=== PATIENT | female | born 1965 | race Caucasian/White ===

== ENCOUNTER 2017-05-21 11:34 | Emergency (ER) | payer OTHER ==
[~2017-05-21] VITALS: Ht 157.5 cm; Wt 81.8 kg
[~2017-05-21 11:34] MED LIST: ALBU8.5H2 IH; AMIT100T2 PO; AMOX-366 PO; DOCU100T2 PO; FEXO1TAB7 PO; FLUT16SP2 NS; HYDR-3797 PO; HYDR-3825 PO; KLO1T PO; LANS30CA14 PO; MORP30TA PO; PROM25TA14 PO; SERT25TA6 PO; ZOLP5TAB6 PO; [UNRECOGNIZED DRUG - CODE] PO
[2017-05-21 11:38] VITALS: BP 163/78; PULSE 78; RESP 17; O2SAT 99
[2017-05-21] MEDS ORDERED: 0.9% Sodium Chloride 1,000 ML IV ONE (13:02)
[2017-05-21 13:12] LABS: BASOPHILS % (AUTO) 0.3 % (0-3); EOSINOPHILS % (AUTO) 1.4 % (0-5); MONOCYTES % (AUTO) 5.7 % (4-12); Mean Corpuscular Hemoglobin 27.1 pg (27.0-35.0); Mean Corpuscular Volume 81.3 fL (81-100); NEUTROPHILS % (AUTO) 50.1 % (40-74); Platelet Count 181 bil/L (150-400)
[2017-05-21] MEDS: HYDROmorphone 0.5 mg/0.5 mL iSecure Syringe IVPUSH PRN ×4 (13:15→14:27)
[2017-05-21 13:34] LABS: APPEARANCE,URINE CLEAR (CLEAR,HAZY); COLOR,URINE YELLOW (YELLOW); OCCULT BLOOD,URINE NEGATIVE (NEGATIVE); PH,URINE 5.5 (5.0-8.0); UROBILINOGEN,URINE NORMAL (NORMAL)
--- NOTE | 2017-05-21 13:49 | ED.REPORT ---
HPI-Back Pain 40 and Over Date of Service May 21, 2017 ED Provider: Ezequiel Joy PA-C Mariann is a 50-year-old female with a history of 4 kidney stones, low back pain and fibromyalgia presenting with a chief complaint of right flank pain. She states it began at 11:15 this morning as she bent over to adjust a toilet seat. Pain in her right lower back that causes her right thigh to cramp. States that the pain was preceded the day before by a sensation of cramping. Denies numbness, tingling, weakness in lower extremity. Denies fever, DM, HIV, organ transplant, immunosuppression, recent surgery, recent infection, history of back surgery, surgical implants and IV drug use. Denies bowel/bladder dysfunction and saddle anesthesia. Denies hematuria, dysuria. Nursing Notes Stated Complaint: POSS KIDNEY STONE Chief Complaint: Female Abdominal Pain Nursing Notes Reviewed: Yes Allergies: Coded Allergies: Adhesives (Verified Allergy, Unknown, 05/21/17) tape-adhesive TAPE (Verified Allergy, Unknown, 05/21/17) tape-adhesive alprazolam (Verified Allergy, Unknown, 05/21/17) meperidine (Verified Allergy, Unknown, 05/21/17) Scheduled Amitriptyline (Amitriptyline) 100 Mg Tablet 100 MG PO HS Amoxicillin/Clav K 875-125 mg (Augmentin 875-125 mg) 1 Each Tablet 1 TABLET PO BID Fexofenadine/Pseudoephedrine ER (Lexy-D 24 Hour) 1 Each Tab.er.24h 1 EACH PO DAILY Fluticasone Propionate (Flonase Nasal) 16 Gm [place].susp 1 SPRAY NS DAILY Lansoprazole DR (Prevacid) 30 Mg Capsule.dr 30 MG PO DAILY Morphine Sulfate (Morphine Sulfate) 30 Mg Tablet 30 MG PO Q3 Propranolol ER (Inderal LA) 120 Mg Cap.sa.24h 120 MG PO DAILY Sertraline HCl (Sertraline) 25 Mg Tablet 25 MG PO DAILY Scheduled PRN Albuterol HFA (Proair HFA) 8.5 Gm Hfa.aer.ad 2 PUFFS IH Q4-6H PRN PRN For Shortness of Breath Clonazepam (Clonazepam) 1 Mg Tab 1 MG PO DAILY PRN PRN For Anxiety Docusate Sodium (Docusate Sodium) 100 Mg Tablet 200 MG PO DAILY PRN PRN For Constipation Hydrocodone-Acetaminophen 7.5-325 mg (Hydrocodone-Acetaminophen 7.5-325 mg) 1 Each Tablet 1 EACH PO BID PRN PRN For Pain Hydroxyzine Pamoate (HydrOXYzine Pamoate) 25 Mg Capsule 50 MG PO DAILY PRN PRN For Insomnia Lidocaine (Lidoderm) 700 Mg Adh..patch 1 PATCH TP DAILY PRN PRN For Pain Alternate 12 hours on, 12 hours off daily Promethazine (Promethazine) 25 Mg Tablet 25 MG PO Q4-6H PRN PRN For Anxiety Zolpidem (Zolpidem) 5 Mg Tablet 5 MG PO HS PRN PRN For Insomnia General Time Seen by MD: 13:04 Chief Complaint Flank pain right Sudden in Onset?: Yes Past Medical History Past Medical History Fibromyalgia Reports: Asthma, GERD Past Surgical History Reports: Appendectomy, Hysterectomy Reports: Tubal ligation Smoking History Never Smoker Ambulatory Status Independent Review of Systems Review of Systems Note: Negative unless stated otherwise in history of present illness Physical Exam General: Well appearing, well developed, obese, mild distress. Patient presents leaning over the gurney, appears to have difficulty getting comfortable. Head: Atraumatic, normocephalic. Eyes: No scleral icterus or injection. No discharge. Vision grossly intact. ENT: Voice clear, hearing grossly intact. Respiratory: Regular rate and rhythm. Breath sounds present, clear to auscultation and equal bilaterally. No respiratory distress. No increased work of breathing, speaks in complete sentences. Cardiovascular: Regular rate and rhythm, without murmur, gallop or rub. No pedal edema. Gastrointestinal: Abdomen flat and non-tender without guarding or rebound. Bowel sounds normoactive. Back: Normal to inspection. Negative midline spinous process tenderness. Positive right SI tenderness. Negative CVA tenderness to palpation or percussion. Skin: Warm and dry. Neurological: Grossly nonfocal. Psychological: Alert and oriented. Speech appropriate, linear and logical. Behavior appropriate. Initial Vital Signs Vital Signs (First) Date Time Temp Pulse Resp B/P Pulse Ox O2 Delivery O2 Flow Rate FiO2 05/21/17 11:38 37.4 78 17 163/78 99 Room Air Elevated blood pressure Interpretation & Diagnostics Lab Results Interpretation Result Diagram: 05/21/17 1306 05/21/17 1306 Test 05/21/17 12:10 05/21/17 13:06 Hold Purple Top Tube Received (Received) Hold Blue Top Tube Received (Received) Hold Urine Received (Received) Hold [place] Top Tube Received (Received) Hold Tristan Top Tube Received (Received) White Blood Count 7.1th/mm3 (3.8-10.1) Red Blood Count 5.28mil/mm3 (3.90-5.20) Hemoglobin 14.3g/dL (12.0-15.6) Hematocrit 42.9% (35.0-46.0) Mean Corpuscular Volume 81.3fL (81-100) Mean Corpuscular Hemoglobin 27.1pg (27.0-35.0) Mean Corpuscular Hemoglobin Concent 33.3% (32.0-37.0) Red Cell Distribution Width 13.8% (12.3-15.4) Platelet Count 181bil/L (150-400) Neutrophils (%) (Auto) 50.1% (40-74) Lymphocytes (%) (Auto) 42.2% (14-46) Monocytes (%) (Auto) 5.7% (4-12) Eosinophils (%) (Auto) 1.4% (0-5) Basophils (%) (Auto) 0.3% (0-3) Urine Color Yellow (YELLOW) Urine Appearance Clear (CLEAR,HAZY) Urine pH 5.5 (5.0-8.0) Urine Specific [place] 1.030 (1.003-1.035) Urine Protein Tracemg/dL (NEG,TRACE) Urine Glucose (UA) Negativemg/dL (NEGATIVE) Urine Ketones Negativemg/dL (NEGATIVE) Urine Occult Blood Negative (NEGATIVE) Urine Nitrite Negative (NEGATIVE) Urine Bilirubin Negative (NEGATIVE) Urine Urobilinogen Normalmg/dL (NORMAL) Urine Leukocyte Esterase Negative (NEGATIVE) Urine RBC 0-2/hpf (0-2) Urine WBC 0-5/hpf (0-5) Urine Epithelial Cells Occasional/hpf (NONE-MOD) Urine Crystals None seen (NONE SEEN) Urine Bacteria None/hpf (NONE-FEW) Urine Hyaline Casts None/lpf (NONE) Urine Granular Casts None seen (NONE SEEN) Urine Waxy Casts None seen (NONE SEEN) Urine Red Blood Cell Casts None seen (NONE SEEN) Urine White Blood Cell Casts None seen (NONE SEEN) Urine Mucus None seen (None Seen) Urine Trichomonas None seen (NONE SEEN) Urine Yeast None (NONE SEEN) Urinalysis Comment None Urine Culture Reflexed Not indicated Sodium Level 136mEq/L (134-144) Potassium Level 4.5mEq/L (3.5-5.2) Chloride Level 100mEq/L (97-108) Carbon Dioxide Level 22mmol/L (18-29) Blood Urea Nitrogen 11mg/dL (6-24) Creatinine 0.88mg/dL (0.57-1.00) Estimat Glomerular Filtration Rate 96mL/min (>59) Glucose Level 131mg/dL (60-99) Calcium Level 9.9mg/dL (8.5-10.1) Total Bilirubin 0.5mg/dL (0.0-1.2) Aspartate Amino Transf (AST/SGOT) 43U/L (0-50) Alanine Aminotransferase (ALT/SGPT) 33U/L (0-32) Alkaline Phosphatase 104U/L (25-150) Total Protein 8.4g/dL (6.4-8.4) Albumin 4.6g/dL (3.4-5.0) Lipase 33U/L (13-60) Re-Eval/Medical Decision Med Decision/Clinical Course 51-year-old female with a history kidney stones, low back pain, or myalgia presents with right flank pain that began approximately 2 hours ago as she bent over to adjust a toilet seat. Procedure the day before by a sensation of cramping. Patient reports a history of 4 kidney stones, none of which produced hematuria. She reports a history of compressed lumbar disc, fibromyalgia treated with chronic opiates. Denies other symptoms. Physical examination she appears to have difficulty finding a comfortable position. Back is normal to inspection with negative CVA tenderness to percussion but positive SI tenderness. Otherwise benign. Patient responds poorly to 0.5 mg Dilaudid. Requests more. CBC, CMP are unremarkable. Urinalysis negative for blood, leukocytes, nitrites, bacteria. I find pyelonephritis unlikely at this point. Discussed the case with Dr. Yoo, recommends CT KUB, which reveals only a nonobstructing kidney stone. There is no hydronephrosis or exhalation for the flank pain. I believe this is most likely musculoskeletal back and flank pain as evidenced by tenderness over the SI joint, lack of CVA tenderness, negative CT scan, negative hematuria. She has normal neurological examination and denies red flag symptoms for acute disc herniation, cauda equina, infection, hematoma, trauma, AAA, cancer. I believe this is musculoskeletal back pain. This patient is on a robust opiate pain medication regimen at home for her fibromyalgia. I do not feel comfortable adding opiates to this. The patient cannot take NSAIDs. I advised 1000 milligrams acetaminophen every 6 hours. I also advised that she can substitute her prescribed Vicodin for this acetaminophen if necessary. She also requests a prescription for lidocaine patches, which are provided. Advised primary care follow-up. Provided emergency return precautions. Patient verbalizes understanding of and consent to the plan Discharge & Departure Impression: Primary Impression: Acute right flank pain Additional Impression: Elevated blood pressure reading Disposition: Home Discharge Condition All VS Reviewed: Yes Patient Instructions: Acute Low Back Pain (ED) Additional Instructions: Evaluation for right flank pain in the emergency department consists of history , physical examination, blood tests, urinalysis and CT scan, all of which are reassuring that this is not in fact a kidney stone or infection and suggests that this is actually musculoskeletal back pain. We have given you a dose of prednisone here in the emergency department to reduce inflammation. I will also give a prescription for more, to be taken once a day for the next 3 days starting tomorrow. I suggested adding 1000 mg of acetaminophen (Tylenol) every 6 hours to your usual pain medication regimen. If she needs more relief, you can SUBSTITUTE your prescribed Vicodin for the Tylenol. Do not take them together, and do not drive or drink alcohol within 4 hours of taking Vicodin. Rest as much as possible, but avoid total bedrest. Stay as active as you can tolerate. Follow-up with your primary care provider in a few days. Return to the emergency Department for any new or worsening symptoms including increasing pain, vomiting, fever, numbness between your legs or loss of bowel/ bladder function. Referrals: Lyndon Lu MD (PCP) EDSupervising Provider for APC: Gen Yoo MD copies to: Lyndon Lu MD, Seth PA-C May 21, 2017 13:48
--- NOTE | 2017-05-21 14:18 | DRSVH ---
PROCEDURE: CT KUB ([id number]) INDICATIONS: right flank pain TECHNIQUE: Noncontrast 5 mm thick sections acquired from the diaphragms to the symphysis. 5 mm thick coronal an d sagittal reformats were then performed. For radiation dose reduction, the following was used: aut omated exposure control, adjustment of mA and/or kV according to patient size. COMPARISON: None. FINDINGS: Image quality: Excellent. Lung bases: Lung bases are clear. Heart size is normal. Urinary system: There is a 2 mm nonobstructing calculus in the anterior collecting system of the rig ht lower pole. No left kidney stones. No hydronephrosis or perinephric fat stranding. Both ureters appear non-dilated throughout their expected courses. Bladder is nondistended, wall thickness is nor mal; no calcified bladder stones. Other solid organs: Liver and spleen are normal in size. Gallbladder is fluid-filled with no visibl e stones.. Pancreas is normal in contours. No adrenal nodules. Peritoneum and bowel: Unenhanced bowel loops demonstrate normal wall thickness and caliber. The appe ndix is nonvisualized and may be surgically absent. No pericecal inflammation evident. There are a fe w scattered normal-sized mesenteric lymph nodes in the right lower quadrant. No free fluid or air. Nodes and vessels: No retroperitoneal or mesenteric adenopathy by size criteria. Aorta and inferior vena cava are normal in caliber. Abdominal wall: No ventral hernias. Pelvis: No free pelvic fluid. No inguinal hernias or adenopathy. Uterus is surgically absent. No ad nexal cyst or mass seen. Bones: No suspicious bony lesions. No vertebral body compression fractures. IMPRESSION: 1. Small nonobstructing right renal calculus. No hydronephrosis or apparent etiology of right flank p ain. 2. Status post hysterectomy and probable appendectomy, correlate with clinical history. Dictated by: Blair Thomas M.D. on 05/21/2017 at 14:09 Approved by: Blair Thomas M.D. on 05/21/2017 at 14:16
[2017-05-21 14:22] VITALS: BP 156/75; PULSE 79; RESP 16; O2SAT 98
[2017-05-21] MEDS ORDERED: PRE20 PO (14:42)
[2017-05-21] MEDS ORDERED: LIDO700A6 TP (15:03)
[2017-05-21 15:10] VITALS: BP 139/83; PULSE 70; RESP 16; O2SAT 95
== END 2017-05-21 15:12 | disposition home or self-care (01) ==
LOC: SED 11:34
DX: R10.9 Unspecified abdominal pain (principal); R03.0 Elevated blood-pressure reading, without diagnosis of hypertension; M79.7 Fibromyalgia; K21.9 Gastro-esophageal reflux disease without esophagitis; J45.909 Unspecified asthma, uncomplicated; Z88.5 Allergy status to narcotic agent; Z91.048 Other nonmedicinal substance allergy status
CPT/HCPCS: 36415; 74176; 80053; 81000; 83690; 85025; 96361; 96374; 96376; 99285; J1170; J7030